=== PATIENT | female | born 1975 | race Native Hawaiian/Other Pacific Islander ===

== ENCOUNTER → 2016-09-24 | Outpatient (CLI) | payer OTHER ==
[~2016-09-24] MED LIST: IOPAMIDOL (ISOVUE-300) 100 ML BTL IV ONE
--- NOTE | 2016-09-24 18:16 | CT ---
CT of the Neck With Contrast 1409 hours History: Follow-up nontoxic multinodular goiter. Technique: Spiral imaging was obtained from the base of skull to the lung apices during the administ ration of 80 mL Isovue-300 IV contrast. Images were constructed in multiple planes. Dose reduction te chniques were utilized. Findings: Comparison to prior CT study of November 14, 2015. Multinodular goiter is once again identified with the left lobe of the thyroid larger than the right. The left lobe measures 12.2 x 6.2 x 7.3 cm in longitudinal, AP, and transverse dimensions (previousl y 10.5 x 6 x 6 cm) and the right lobe measures 8.9 x 3.6 x 3.9 cm (previously 7 x 3.4 x 3.3 cm). The previous study was performed without IV contrast making the margins of the thyroid less well delineat ed on the previous exam. On today's study there is focal lobulated contour of the anterior margin of the left lobe of the thyroid that appears to insinuate between the platysmas muscle and the sternocle idomastoid on the left. There is also a lobulated extension of the lower pole right lobe of the thyro id into the upper mediastinum along the right side of the upper thoracic spine posterior and toward t he right of the trachea. The trachea is deviated toward the right secondary to the enlarged left lobe of the thyroid. There is no lymphadenopathy seen within the neck. There is scarring involving the ri ght upper lobe extending to the apex with associated calcifications. There is also some scarring with calcifications left upper lobe posteriorly. Normal-appearing subcentimeter lymph nodes are seen within the soft tissues on each side of the neck. No significant lymphadenopathy is appreciated. The parapharyngeal soft tissues are symmetric without evidence of mass. The vallecula and piriform sinuses also appear to be normal. The soft palate has a normal contour. The parotid and submandibular glands are normal in appearance. The musculature withi n the neck is symmetric. There is normal enhancement of the vasculature. There is no evidence of unde rlying stenosis involving the carotid system. No significant cervical disk disease is seen. Impression: 1. Significantly enlarged thyroid left side greater than right as detailed above. This may be increas ed slightly since the prior study although the margins were less well delineated previously secondary to lack of IV contrast administration previously. 2. Lobulated extension of the lower pole right lobe of the thyroid into the superior mediastinal tenzin cent to the upper thoracic spine posterior to the trachea. 3. The trachea is deviated toward the right secondary to the enlarged thyroid. 4. No evidence of lymphadenopathy within the neck. 5. Calcified scarring right upper lobe to the apex as well as left upper lobe posteriorly.
== END ==
LOC: FIMAGING 13:37
PROVIDERS: ATTEND Otolaryngology
DX: E04.2 Nontoxic multinodular goiter (principal)
CPT/HCPCS: Q9967